=== PATIENT | female | born 1985 | race African-American/Black ===

== ENCOUNTER 2017-02-22 08:48 | Inpatient (IN) | payer OTHER ==
[2017-02-22] VITALS (23 sets, daily range): BP systolic 81–140; BP diastolic 49–118
[~2017-02-22] VITALS: Ht 165.1 cm; Wt 199.6 kg
--- NOTE | ~2017-02-22 | O ---
[facility] [place] [address] OPERATIVE REPORT Name: SANNA DOWNING Room #: 403-P [facility] IN .R.#: [id number] Admission: 02/22/17 Attend Phys: Gus Mahan Discharge: Date of : 87 Report #: [id number] THIS REPORT FOR: //name// CC: ROSETTA physician/PCP Gus Mahan DATE OF SERVICE: 02/22/2017 PREOPERATIVE DIAGNOSIS: Recurrent large abdominal wall abscess with cellulitis and panniculitis. POSTOPERATIVE DIAGNOSIS: Recurrent large abdominal wall abscess with cellulitis and panniculitis. PROCEDURE: Incision and drainage with pulsatile irrigation and debridement, pulsatile of a large 15 x 20 cm abdominal wall abscess with recent spontaneous drainage. SURGEON: Godfrey Little M.D. INDICATIONS: A 31-year-old lady who had a previous , ventral hernia repaired in 2010 and recurrent repair in 2011 with placement of a patch presented in 02/2016 with a large initial abdominal wall abscess involving panniculitis of the whole lower panniculus below the umbilicus which required drainage, now has presented again after 9 months with a recurrent large 15 x 20 cm abdominal wall abscess demonstrated by sonography. This requires drainage and pulsatile irrigation. OPERATIVE PROCEDURE: The patient had thorough discussion of procedure, benefits and risks. She gave informed consent to proceed. She was on preoperative antibiotics. She was brought to the operating room suite and had satisfactory induction of endotracheal anesthesia. The patient was properly positioned in frogleg with adequate care. There was a large amount of purulent foul smelling drainage present in the mid portion below the umbilicus. The spontaneous opening was approximately 3 cm in diameter. Approximately 300 mL of foul smelling purulent drainage was encountered. This was evacuated. The incision was opened inferiorly to involve a distance of approximately 8-10 cm in the previous lower midline scar. The cavity was approximately 15 x 20 cm in greatest dimensions. All purulent fluid was removed and aspirated. The pulsatile rotary cutter with 3 liters of saline and 1000 units of bacitracin was then utilized for pulsatile irrigation and debridement of the entire abdominal wall abscess and wound. After this was completed, there was no hemorrhage present. Hemostasis was complete. The wound was packed with a Kerlix gauze soaked with 60 mL of 0.5% plain Naropin solution. An ABD was placed. [address] [address] OPERATIVE REPORT Name: SANNA DOWNING Room #: 403-P [facility] IN M.R.#: [id number] Admission: 02/22/17 Attend Phys: Gus Mahan Discharge: Date of : 87 Report #: [id number] blood loss was less than 5 mL. The patient tolerated the procedure well and she returned to recovery room in stable and satisfactory condition. <ELECTRONICALLY SIGNED> By: Godfrey Little MD, FACS 02/25/17 0951 [id number] Godfrey Little MD, ANGEL /nt
--- NOTE | ~2017-02-22 | HC ---
[facility] [place] [address] CONSULTATION Name: SANNA DOWNING Room #: 403-P ADM IN ..#: [id number] Admission: 02/22/17 Attend Phys: Gus Mahan Discharge: Date of : 87 Report #: [id number] THIS REPORT FOR: //name// CC: ROSETTA physician/PCP Gus Mahan DATE OF SERVICE: 02/22/2017 Pierre Peres, physician assistant community manager in collaboration with Dr. Rebel Kaur dictating a consultation note. ADMITTING PHYSICIAN: Dr. Weber. REASON FOR CONSULTATION: Evaluation and recommendations regarding wound care. CHIEF COMPLAINT: Recurrence of abdominal wall abscess. HISTORY OF PRESENT ILLNESS: The patient is a pleasant 31-year-old -Swedish female with past medical history of multiple abdominal wall abscesses in 05/2016. She started noting an abscess to her midline abdomen on 02/20/2017. She was seen at [facility] on that day and was diagnosed with an abscess and cellulitis and discharged home on oral antibiotics. Over 2 days, the abscess worsened. She did state she had a fever on Tuesday, which resolved. She started to notice bogginess to the area and came to [facility] for further evaluation. She was admitted. She was taken to the operating room for irrigation and drainage, debridement of the abdominal wall abscess, once on 02/22/2017 and once on 02/24/2017 by ____. She continues on IV antibiotics and followed by Infectious Disease. Her wound is packed at this time. Infectious Disease is concerned regarding either an infected mesh or fistula, with recommendations of a fistulogram. PAST MEDICAL HISTORY: Significant for cellulitis, panniculitis, multiple abscess, DVT and PE. PAST SURGICAL HISTORY: Significant for x 3 and hernia repair x 2. ALLERGIES: There are no known drug allergies. CURRENT MEDICATIONS: Include Lovenox, Zosyn, Ambien, polyethylene, ondansetron, morphine p.r.n., hydrocodone and Tylenol. SOCIAL HISTORY: Negative for tobacco, alcohol or illicit drug use. FAMILY HISTORY: Not pertinent to current wound diagnoses. REVIEW OF SYSTEMS: Currently, the patient denies fevers or chills. [address] [address] CONSULTATION Name: SANNA DOWNING Room #: 403-P [facility] IN [facility].#: [id number] Admission: 02/22/17 Attend Phys: Gus Mahan Discharge: Date of : 87 Report #: [id number] visual change. Denies shortness of breath, chest pain. She has done well following surgery and has mild abdominal pain. Otherwise, review of systems negative. PHYSICAL EXAMINATION: VITAL SIGNS: Temperature 36.7, pulse 62, respirations 16, blood pressure 127/81, pulse ox 100% on room air. GENERAL: The patient is morbidly obese. HEENT: Head atraumatic, normocephalic. Mucous membranes moist. NECK: Supple. Negative for JVD. HEART: Regular rate and rhythm. LUNGS: Symmetric nonnonlabored expansion. ABDOMEN: Large midline surgical wounds secondary to I and D from abscess. Please see nurse's notes for full measurements. Wound base is granulation tissue with moderate serosanguineous drainage, induration circumferentially about the opening. Minimal pain with dressing change. She does require pain medication prior to dressing changes. Scarring from previous I and Ds to abdomen noted. There are no other wounds to report. NEUROLOGIC: Cranial nerves 2-12 are intact. She can move all 4 limbs. SKIN: No other skin issues. Wound culture was positive for moderate gram-negative rods and rare gram-positive cocci. Blood culture with no growth. Her labs, white blood cell 10.5, hemoglobin 8.4. Hemoglobin A1c was 5.3, albumin 2.0. Abdominal ultrasound on 02/22/2017 shows a recurrence of abscess. The patient was taken back to the OR, did undergo two I and Ds since that time. ASSESSMENT: 1. Recurrent abdominal abscess, concern for infected mesh versus fistula. Her previous surgeries were done at [facility]. 2. History of deep venous thrombosis. 3. Morbid obesity. PLAN: 1. Current local wound orders will be quarter strength Dakin's lightly packed to wound bed covered with ABD and tape. The patient would benefit from negative pressure wound therapy. She has been evaluated by [facility] and accepted with probable discharge today to facility. We will hold off on initiating wound VAC until her admission there. 2. Continue IV antibiotics per Infectious Disease. 3. Continue with further diagnostic testing for mesh infection or fistula. 4. Max nutrition or protein calorie malnutrition with albumin of 2 as well as wound healing with additional protein and supplements. 5. PT, OT for strengthening. [facility] [address] [place] [address] CONSULTATION Name: SANNA DOWNING Room #: 403-P [facility] IN M.R.#: [id number] Admission: 02/22/17 Attend Phys: Gus Mahan Discharge: Date of : 87 Report #: [id number] Thank you for allowing us to participate in the care of this patient. By: [id number] [id number] ERIBERTO Dover /gisela
--- NOTE | ~2017-02-22 | O ---
[facility] [place] [address] OPERATIVE REPORT Name: CHANGSANNA D Room #: 403-P ADM IN M.R.#: [id number] Admission: 02/22/17 Attend Phys: Gus Mahan Discharge: Date of : 87 Report #: [id number] THIS REPORT FOR: //name// CC: ROSETTA physician/PCP Gus Mahan DATE OF SERVICE: 02/24/2017 PREOPERATIVE DIAGNOSIS: Large 15 x 20 cm recurrent abdominal wall abscess with panniculitis and cellulitis. POSTOPERATIVE DIAGNOSIS: Large 15 x 20 cm recurrent abdominal wall abscess with panniculitis and cellulitis. OPERATIVE PROCEDURE: Second look irrigation with pulsatile debridement and packing of a large recurrent abdominal wall abscess 15 x 20 cm cavity. SURGEON: Godfrey Little MD. HEALTH CARE COORDINATOR: Tess Sauer APRN. INDICATIONS: A 31-year-old lady with recurrent large abdominal wall abscess with previous drainage and pulsatile irrigation on 02/22/2017, now required second look and re-irrigation with pulsatile debridement. OPERATIVE PROCEDURE: The patient had thorough discussion of procedure, benefits and risks. She gave informed consent to proceed. She was on preoperative IV antibiotics. An appropriate timeout was performed after induction of general endotracheal anesthesia. The wound was prepped and painted around the abscess with Betadine solution after removal of the original packing from 02/22/2017. Cultures for aerobes, anaerobes was then obtained. After draping was complete, the pulsatile carbon sequestration plant engineer with 3 liters of saline and 1000 units of bacitracin was utilized to further perform pulsatile debridement of the entire abscess cavity. The wound was cleaned up and becoming clean with some early granulation tissue formation. No hemorrhage was present. The wound was then packed with 1 rolled Kerlix soaked with 60 mL of 0.5% plain Naropin. ABD was placed over the packing. The patient tolerated procedure well with estimated blood loss of less than 2 mL. She returned directly to recovery room in stable and satisfactory condition. <ELECTRONICALLY SIGNED> By: Godfrey Little MD, FACS 02/25/17 0951 [id number] Godfrey Little MD, FACS /nt
--- NOTE | ~2017-02-22 | HC ---
[facility] [place] [address] [address] CONSULTATION Name: SANNA DOWNING Room #: 244-P [facility] IN ..#: [id number] Admission: 02/22/17 Attend Phys: Gus Mahan Discharge: Date of : 87 Report #: [id number] THIS REPORT FOR: //name// CC: ROSETTA physician/PCP Gus Mahan REASON FOR CONSULTATION: I was asked to evaluate concerning abdominal pannus infection. HISTORY OF PRESENT ILLNESS: The patient is a 31-year-old morbidly obese woman who in May of 2016 was treated for a polymicrobial anaerobic abdominal pannus abscess that was debrided by Dr. Godfrey Little. In addition to her morbid obesity, she has had DVT, pulmonary embolism, and a ventral abdominal wall herniorrhaphy and revision. She had patch placement in 2010 with a reoperation in 2011. At the time of her last abscess drainage and debridement by Dr. Little, there was no report of exposed mesh. She is too heavy to go to the CAT scanner. Since her last surgery in May of 2016, she did close her wound. She had been back to work and felt well until this past week when she developed flu-like symptoms. Then noticed increased abdominal tenderness and pain in the abdominal pannus. This spontaneously drained in the emergency room today. She has had temperature of 99 degrees. Hemodynamically, she has been stable. REVIEW OF SYSTEMS: Notes no cough or sputum production. No nausea, vomiting, diarrhea, dysuria or frequency. PAST MEDICAL HISTORY: Includes the above noted points with no additions. ALLERGIES: None. MEDICATIONS: As noted on MAR, now on Zosyn. FAMILY HISTORY: Noncontributory. SOCIAL HISTORY: Nonsmoker, no significant alcohol intake. PHYSICAL EXAMINATION: VITAL SIGNS: Afebrile, hemodynamically stable. She was in the preop room, getting prepped for surgery. GENERAL: Alert, cooperative, pleasant, morbidly obese. CHEST: Clear. HEART: Regular. ABDOMEN: Soft except a large abdominal pannus with indurated area along the midline. Pressing down on this, I was able to express a large amount of odorous purulent material from the sinus tract. LABORATORY STUDIES: Beta hCG was negative. Ultrasound of the abdomen showed fairly large collection of fluid in the abdominal pannus. X-ray of the abdomen [address] [address] CONSULTATION Name: SANNA DOWNING Room #: 244-P [facility] IN .R.#: [id number] Admission: 02/22/17 Attend Phys: Gus Mahan Discharge: Date of : 87 Report #: [id number] did show cluster of gas filled small bowel loops in the medial left flank region concerning for ileus. Hemoglobin 8.2, white count 16, platelet count 362,000. Segs 79, 1%, bands, iron 11, total iron binding capacity 203. Sodium 141, potassium 2.9, bicarbonate 28, creatinine 0.7. Liver function tests normal. Lactate 1.2. Urinalysis, rare wbc's, moderate bacteria. IMPRESSION: A 31-year-old with morbid obesity and recurring abdominal pannus abscess. Given the recurrent nature of this would be concerned about underlying mesh, ventral patch infection. She does have a collection of bowel noted on her abdominal x-ray that seems to group in one area. The patient is unable to get on the CAT scanner because of her size. I will continue with broad spectrum antibiotic coverage at this point in time and we will await surgical evaluation today. I will discuss with Dr. Little postoperatively. <ELECTRONICALLY SIGNED> By: Pravin Ritter MD 02/23/17911 00 09 Pravin Ritter MD /nt
[~2017-02-22 08:48] MED LIST: AUGMENTIN 875875 MG PO; BACTRIM DS TAB1 EACH PO; IBUPROFEN 400400 M2 PO; IRON325 PO; KEFLEX500 MG PO; MAGNESIUM OXID400 MG PO; MIRALAX17 GM PO; PERCOCET PO
[2017-02-22] MEDS ORDERED: CIPRO250 M1 PO (09:02)
[2017-02-22 09:35] LABS: URINE BILIRUBIN NEGATIVE (Negative); URINE BLOOD NEGATIVE (Negative); URINE COLOR YELLOW; URINE GLUCOSE-RANDOM* NEGATIVE (Negative); URINE KETONES NEGATIVE (Negative); URINE NITRITE NEGATIVE (Negative); URINE PROTEIN (DIPSTICK) 1+ (Negative)
[2017-02-22 10:00] LABS: CASTS None Seen /LPF (None Seen); SQUAMOUS >10 Many /LPF (0-3)
[2017-02-22 10:01] LABS: CRYSTALS None Seen /LPF (None Seen); URINE RBC None Seen /HPF (0-2); URINE WBC 0-5 Rare /HPF (0-5)
[2017-02-22 11:35] LABS: HEMATOCRIT 25.9 % (37.0-47.0); HEMOGLOBIN 8.2 gm/dL (12.0-15.0); MCH 22.7 pg (26.0-34.0); MCHC 31.8 g/dL (28.0-37.0); MCV 71.3 fL (80.0-100.0); PLATELET COUNT 362 thou/uL (150-400); RBC 3.63 mil/uL (4.20-5.00); RDW 19.3 % (10.5-14.5)
[2017-02-22 11:37] LABS: MANUAL DIFF YES
[2017-02-22 12:23] LABS: CALCIUM 7.8 mg/dL (8.5-10.1); CREATININE 0.7 mg/dL (0.6-1.0); TOTAL BILIRUBIN 0.5 mg/dL (<0.1-1.0); TOTAL PROTEIN 7.2 g/dL (6.4-8.2)
[2017-02-22 12:26] LABS: POTASSIUM 2.9 mmol/L (3.5-5.1)
[2017-02-22 12:33] LABS: % SATURATION 5 % (20-39); IRON 11 ug/dL (50-170); TIBC 203 ug/dL (250-450); UIBC 192 ug/dL
[2017-02-22 12:41] LABS: ABSOLUTE NEUTROPHILS 12.8 thou/uL (1.4-8.2); ANISOCYTOSIS 2+; HYPOCHROMASIA 2+; MICROCYTES 1+; TOTAL CELL COUNT 100
[2017-02-23] VITALS (39 sets, daily range): BP systolic 93–144; BP diastolic 44–123
[2017-02-23 04:07] LABS: GLYCOHEMOGLOBIN (HGB A1C) 5.3 % (4.8-5.6)
[2017-02-23 04:12] LABS: HEMOGLOBIN 7.6 gm/dL (12.0-15.0); MCH 22.5 pg (26.0-34.0); MCHC 31.8 g/dL (28.0-37.0); MCV 70.6 fL (80.0-100.0); RBC 3.4 mil/uL (4.20-5.00); RDW 19.6 % (10.5-14.5); WBC 13.7 thou/uL (4.0-11.0)
[2017-02-23 04:26] LABS: CALCIUM 7.7 mg/dL (8.5-10.1); CREATININE 0.8 mg/dL (0.6-1.0); POTASSIUM 3.3 mmol/L (3.5-5.1)
[2017-02-24] VITALS (9 sets, daily range): BP systolic 112–138; BP diastolic 55–93
[2017-02-24 06:19] LABS: HEMATOCRIT 26.2 % (37.0-47.0); HEMOGLOBIN 8.4 gm/dL (12.0-15.0); MCH 22.8 pg (26.0-34.0); MCHC 32.1 g/dL (28.0-37.0); MCV 70.9 fL (80.0-100.0); RBC 3.7 mil/uL (4.20-5.00); RDW 19.9 % (10.5-14.5); WBC 10.5 thou/uL (4.0-11.0)
[2017-02-24 06:24] LABS: CALCIUM 8.2 mg/dL (8.5-10.1); CREATININE 0.8 mg/dL (0.6-1.0); POTASSIUM 3.9 mmol/L (3.5-5.1)
[2017-02-25] VITALS: BP 119/70
[2017-02-25 04:00] VITALS: BP 129/78
[2017-02-25 08:37] VITALS: BP 127/81
[2017-02-25] MEDS ORDERED: ZOSYN 3.373.375 GM/1 IV (15:52)
[2017-02-25 16:53] VITALS: BP 132/81
[2017-02-25 20:18] VITALS: BP 121/76
[2017-02-26 03:51] VITALS: BP 127/75
[2017-02-26 07:50] VITALS: BP 132/83
[2017-02-26 18:07] VITALS: BP 119/70
[2017-02-26 19:24] VITALS: BP 143/80
[2017-02-27 05:02] LABS: HEMATOCRIT 24.9 % (37.0-47.0); HEMOGLOBIN 8.2 gm/dL (12.0-15.0); MCH 23.4 pg (26.0-34.0); MCHC 32.9 g/dL (28.0-37.0); MCV 71.1 fL (80.0-100.0); PLATELET COUNT 389 thou/uL (150-400); RDW 20.3 % (10.5-14.5); WBC 9.3 thou/uL (4.0-11.0)
[2017-02-27 05:05] LABS: MANUAL DIFF YES
[2017-02-27 05:17] LABS: ALBUMIN 1.9 g/dL (3.4-5.0); CALCIUM 8.4 mg/dL (8.5-10.1); CREATININE 0.8 mg/dL (0.6-1.0); POTASSIUM 3.9 mmol/L (3.5-5.1); TOTAL BILIRUBIN 0.3 mg/dL (<0.1-1.0); TOTAL PROTEIN 7.2 g/dL (6.4-8.2)
[2017-02-27 06:31] VITALS: BP 117/67
[2017-02-27 07:43] VITALS: BP 147/78
[2017-02-27 08:33] LABS: ABSOLUTE NEUTROPHILS 5.8 thou/uL (1.4-8.2); METAMYELOCYTES 2 %; NUCLEATED RBCS 1 /100WBC; TOTAL CELL COUNT 100
[2017-02-27 08:40] LABS: ANISOCYTOSIS 2+; HYPOCHROMASIA 1+; MICROCYTES 1+
[2017-02-27 16:00] VITALS: BP 139/70
[2017-02-27 19:26] VITALS: BP 125/86
[2017-02-28 03:56] VITALS: BP 124/65
[2017-02-28 07:32] VITALS: BP 126/68
[2017-02-28 15:42] VITALS: BP 153/91
[2017-02-28 19:47] VITALS: BP 142/80
[2017-03-01 03:37] VITALS: BP 125/62
[2017-03-01 08:00] VITALS: BP 138/69
== END 2017-03-01 17:36 | DRG 907 ==
LOC: ER 08:48 → 4N 10:39 → EROBS 10:39 → ICU 10:39 → 4N 02-23 11:52
PROVIDERS: Hospitalist; Internal Medicine Infectious Disease; Nurse Practitioner Family; Physician Assistant; Surgery
PROC: 0W9F0ZZ Drainage of Abdominal Wall, Open Approach (ICD-10-PCS; principal; 2017-02-22)
PROC: 0WBF0ZZ Excision of Abdominal Wall, Open Approach (ICD-10-PCS; principal; 2017-02-22)
PROC: 2W43X5Z Packing of Abdominal Wall using Packing Material (ICD-10-PCS; 2017-02-24)
PROC: 0JD80ZZ Extraction of Abdomen Subcutaneous Tissue and Fascia, Open Approach (ICD-10-PCS; 2017-02-24)
PROC: B548ZZA Ultrasonography of Superior Vena Cava, Guidance (ICD-10-PCS; 2017-02-25)
PROC: 02HV33Z Insertion of Infusion Device into Superior Vena Cava, Percutaneous Approach (ICD-10-PCS; 2017-02-25)
DX: T85.79XA Infection and inflammatory reaction due to other internal prosthetic devices, implants and grafts, initial encounter (principal); E43 Unspecified severe protein-calorie malnutrition; Z68.45 Body mass index [BMI] 70 or greater, adult; L02.211 Cutaneous abscess of abdominal wall; L03.311 Cellulitis of abdominal wall; M79.3 Panniculitis, unspecified; E65 Localized adiposity; E66.01 Morbid (severe) obesity due to excess calories; D64.9 Anemia, unspecified; I10 Essential (primary) hypertension; R53.81 Other malaise; E87.6 Hypokalemia; Z86.718 Personal history of other venous thrombosis and embolism; Z79.899 Other long term (current) drug therapy; Z86.711 Personal history of pulmonary embolism
CPT/HCPCS: 10196; 10790; 27000; 27001; 50010; 50101; 50386; 50403; 53078; 62110; 62900; 70005